=== PATIENT | female | born 1960 | race Caucasian/White ===

== ENCOUNTER → 2021-03-09 | Outpatient (CLI) | payer BC | LOC: MAMO 02-19 10:00 | DX: Z12.31 Encounter for screening mammogram for malignant neoplasm of breast (principal) | CPT/HCPCS: 77063; 77067 ==

== ENCOUNTER 2021-04-05 17:54 | Emergency (ER) | payer BC ==
[2021-04-05 19:00] LABS: HEMOGLOBIN 13.1 gm/dl (12.3-15.3); RED BLOOD COUNT 4.95 M/UL (4.00-5.10); WHITE BLOOD COUNT 17.4 K/UL (4.5-11.0)
== END 2021-04-06 01:33 | disposition short-term general hospital (02) ==
LOC: ER1 17:54
PROVIDERS: Physician Assistant
DX: G89.18 Other acute postprocedural pain (principal); R10.30 Lower abdominal pain, unspecified; R11.2 Nausea with vomiting, unspecified; I10 Essential (primary) hypertension; Z90.710 Acquired absence of both cervix and uterus; Z20.822 Contact with and (suspected) exposure to COVID-19; Z90.722 Acquired absence of ovaries, bilateral; Z88.5 Allergy status to narcotic agent; Z88.1 Allergy status to other antibiotic agents; Z88.6 Allergy status to analgesic agent
CPT/HCPCS: 80053; 83605; 83690; 85025; 85652; 86140; 96374; 96375; 96376; 99285; J1170; J2405; J2543; J2550; J2765; J3010; J7030; U0002

== ENCOUNTER → 2021-06-08 | Outpatient (CLI) | payer BC | LOC: RAD 11:38 | DX: J90 Pleural effusion, not elsewhere classified (principal) | CPT/HCPCS: 71046 ==

== ENCOUNTER → 2021-06-18 | Outpatient (CLI) | payer BC ==
[2021-06-18 15:00] LABS: BUN/CREATININE RATIO 15 (0-10)
== END ==
LOC: CT 14:15
PROVIDERS: Family Medicine
DX: R06.00 Dyspnea, unspecified (principal); R91.8 Other nonspecific abnormal finding of lung field
CPT/HCPCS: 36415; 71270; 80048; Q9967

== ENCOUNTER → 2022-01-20 | Outpatient (CLI) | payer BC ==
[~2022-01-20] VITALS: Ht 162.6 cm; Wt 83.0 kg
== END ==
LOC: EROP 12:14
DX: U07.1 COVID-19 (principal); Z23 Encounter for immunization
CPT/HCPCS: M0222; Q0222